=== PATIENT | male | born 1965 | race Caucasian/White ===

== ENCOUNTER → 2021-10-12 | Outpatient (CLI) | payer BC ==
--- NOTE | 2021-10-13 07:38 | XR ---
EXAMINATION TYPE: XR lumbosacral spine 5 views, XR Hip Complete 2 views RT DATE OF EXAM: 10/12/2021 Comparison: None Clinical History: 56-year-old male [id number], [id number] RT HIP PAIN, LBP Findings: Lumbar spine: There is facet arthropathy mid to lower lumbar spine. Vertebral body heights are preserved and alignm ent is maintained. Very mild endplate spondylosis throughout. Disc interspaces are relatively maintai david. Scattered mild atherosclerotic calcifications within the abdominal aorta. No pars interarticular is defect is seen. Right hip: There is end-stage degenerative change with complete loss of superolateral weightbearing joint space and [id number] articulation. Subchondral sclerosis and cystic changes as well as marginal spurring is noted. No acute fracture, subluxation, or dislocation. Impression: 1. Lumbar spine: Facet arthropathy mid to lower lumbar spine. No vertebral compression collapse or ma lalignment. 2. Right hip: Severe right hip OA with [id number], complete loss of the superolateral weightbearing aspect of the joint.
== END | disposition home or self-care (01) ==
LOC: RADXRYALE 16:31
PROVIDERS: ATTEND Nurse Practitioner Family
DX: M47.896 Other spondylosis, lumbar region (principal); M16.11 Unilateral primary osteoarthritis, right hip
CPT/HCPCS: 72110; 73502

== ENCOUNTER → 2022-03-24 | Outpatient (CLI) | payer BC | END | disposition home or self-care (01) | LOC: LABPAT 13:27 | PROVIDERS: ATTEND Orthopaedic Surgery | DX: Z01.812 Encounter for preprocedural laboratory examination (principal); M16.11 Unilateral primary osteoarthritis, right hip | CPT/HCPCS: 93005 ==

== ENCOUNTER → 2022-03-25 | Outpatient (CLI) | payer BC ==
[2022-03-25 10:02] LABS: Prothrombin Time 10.4 sec (9.0-12.0)
[2022-03-25 17:19] LABS: HCT 49.2 % (39.6-50.0); HGB 15.8 g/dL (13.0-17.0); MCH 29.3 pg (27.0-32.0); MCHC 32.1 g/dL (32.0-37.0); MCV 91.3 fL (80.0-97.0); Mean Platelet Volume 10.3 fL (9.5-12.2); NRBC Per 100 WBC 0 /100 WBCS (0.0-0.0); Platelet Count 244 X 10*3/uL (140-440); RBC 5.39 X 10*6/uL (4.40-5.60); RDW 13.6 % (11.5-14.5); WBC 7.64 X 10*3/uL (4.50-10.00)
[2022-03-25 17:22] LABS: Appearance,Urine Clear (Clear); Bilirubin,Urine Negative (Negative); Blood,Urine Negative (Negative); Color,Urine Yellow (Yellow); Ketones,Urine Negative (Negative); Nitrite,Urine Negative (Negative); Specific Gravity,Urine 1.008 (1.001-1.030); Urobilinogen,Urine 0.2 (0.2,1.0)
[2022-03-25 17:55] LABS: African American GFR (CKD) 93.7 (60.0-200.0); Albumin 4.8 g/dL (3.8-4.9); Albumin/Globulin Ratio 1.97 (1.60-3.17); Anion Gap 13.8 mmol/L (10.00-18.00); BUN/Creat Ratio 19.03 Ratio (12.00-20.00); Blood Urea Nitrogen 19.6 mg/dL (9.0-27.0); Calcium 9.7 mg/dL (8.7-10.3); Carbon Dioxide 26.1 mmol/L (20.0-27.5); Globulin 2.4 g/dL (1.6-3.3); Non-African American GFR(CKD) 80.8 (60.0-200.0); Potassium 4.3 mmol/L (3.5-5.5); Total Bilirubin 0.5 mg/dL (0.30-1.20); Total Protein 7.2 g/dL (6.2-8.2)
== END | disposition home or self-care (01) ==
LOC: LABPAT 08:04
PROVIDERS: ATTEND Orthopaedic Surgery
DX: Z01.812 Encounter for preprocedural laboratory examination (principal); E11.9 Type 2 diabetes mellitus without complications; M16.11 Unilateral primary osteoarthritis, right hip
CPT/HCPCS: 80053; 81003; 85027; 85610; 85730; 87070

== ENCOUNTER 2022-04-05 10:49 | Day surgery (SDC) | payer BC ==
[2022-03-31 13:19] VITALS: BMI 37.9
[~2022-04-05 10:49] MED LIST: ACETAMINOPHEN TAB 500 MG TAB PO PRN; DEXAMETHASONE SOD PHOSPHATE 10 MG/ML 1 ML VIAL IV PRN; DOCUSATE 100 MG CAP PO PRN; FAMOTIDINE 20 MG/2 ML VIAL IVP PRN; HYDROmorphone 0.5 MG/0.5 ML SYRINGE IVP PRN; KETOROLAC 15 MG/ML 1 ML VIAL IVP PRN; LIDOCAINE 1% (10MG/ML) FOR IV START INTRADERMA PRN; ONDANSETRON 4 MG/2 ML VIAL IVP PRN; TRANEXAMIC ACID IN NACL,ISO-OS 1,000 MG in SALINE 1 100ML.BAG IVPB PRN; oxyCODONE ER 10 MG TAB.ER.12H PO PRN
[2022-04-05] MEDS: LACTATED RINGERS 1,000 ML IV SCH ×2 (11:09→18:34)
[2022-04-05 11:31] LABS: Glucose,Whole Blood 100 mg/dL (70-110)
[2022-04-05] MEDS ORDERED: MIDAZOLAM 2 MG/2 ML VIAL IVP ONE (11:49)
[2022-04-05] MEDS ORDERED: fentaNYL (PF) 50 MCG/1 ML VIAL IVP ONE (11:49)
--- NOTE | 2022-04-05 12:20 | P.ANPRN ---
Procedure Note - Anesthesia - Nerve Block Performed Right Nicholson Single Time Out Performed: Yes Date of Procedure: 04/05/22 Procedure Start Time: 11:48 Procedure Stop Time: 11:56 Location of Patient: PreOp Indication: Acute Post-Operative Pain, Dx/Pain Location, Requested by Surgeon Specifically requested for management of pain by DrLexii: Adam Mohr Sedation Type: Sedate with meaningful contact maintained Preparation: Sterile Prep Position: Supine Catheter: None Needle Types: Pajunk Needle Gauge: 21 (100 mm) Ultrasound used to visualize needle placement: Yes Ultrasound used to observe medication spread: Yes Injectate: 0.5% Ropivacaine (see comment for volume) (25 cc) Blood Aspirated: No Pain Paresthesia on Injection Noted: No Resistance on Injection: Normal Image Stored and Saved: Yes Events: Uneventful and Well Tolerated
[2022-04-05] MEDS ORDERED: KETAMINE 10 MG/ML 20 ML VIAL ONE (12:58)
[2022-04-05] MEDS ORDERED: GLYCOPYRROLATE 0.2 MG/ML 2 ML VIAL ONE (12:58)
[2022-04-05] MEDS ORDERED: SUCCINYLCHOLINE CHLORIDE 200 MG/10 ML VIAL IV ONE (12:58)
[2022-04-05] MEDS ORDERED: PROPOFOL 10 MG/ML 20 ML VIAL IV ONE (12:58)
[2022-04-05] MEDS ORDERED: ePHEDrine 50 MG/ML 1 ML VIAL ONE (12:58)
[2022-04-05] MEDS ORDERED: NEOSTIGMINE 1 MG/ML 10 ML VIAL ONE (12:58)
[2022-04-05] MEDS ORDERED: ROPIVACAINE 5 MG/ML 30 ML VIAL ONE (12:58)
[2022-04-05] MEDS ORDERED: fentaNYL (PF) 50 MCG/ML 2 ML AMP ONE (12:58)
[2022-04-05] MEDS ORDERED: ROCURONIUM 10 MG/ML (5 ML VIAL) IV ONE (12:58)
[2022-04-05] MEDS ORDERED: TRANEXAMIC ACID IN NACL,ISO-OS 1,000 MG/100 ML BAG ONE (12:58)
[2022-04-05] MEDS ORDERED: LIDOCAINE 2% INJ 20 MG/ML (2 ML VIAL) ONE (12:58)
[2022-04-05] MEDS ORDERED: MIDAZOLAM 2 MG/2 ML VIAL ONE (12:58)
[2022-04-05] MEDS ORDERED: PHENYLEPHRINE-0.9% NACL SYG 1,000 MCG/10 ML SYRINGE ONE (12:58)
[2022-04-05] MEDS ORDERED: LACTATED RINGERS 1,000 ML IV ONE ×2 (13:30→15:47)
[2022-04-05] MEDS: ROPIVACAINE/EPI/CLONIDINE/KET 50 ML SYRINGE MISCELLANE PRN ×2 (13:40→14:16)
[2022-04-05] MEDS ORDERED: VANCOMYCIN 1,000 MG VIAL MISCELLANE ONE (15:24)
--- NOTE | 2022-04-05 15:54 | XR ---
EXAMINATION TYPE: XR Hip Limited RT DATE OF EXAM: 04/05/2022 COMPARISON: NONE HISTORY: Postop TECHNIQUE: 6 views submitted. FINDINGS: There is postsurgical change in near anatomic alignment. There is soft tissue edema and emphysema. IMPRESSION: 1. Postoperative change. Appears in near-anatomic alignment.
--- NOTE | 2022-04-05 15:57 | FL ---
EXAMINATION TYPE: FL guidance operating room DATE OF EXAM: 04/05/2022 HISTORY: Fluoroscopy time 51 seconds of fluoroscopy provided. IMPRESSION: 1. Fluoroscopy time.
[2022-04-05] MEDS ORDERED: hydrOXYzine pamoate 25 MG CAP PO PRN (16:04)
[2022-04-05] MEDS ORDERED: HYDROmorphone 1 MG/ML 1 ML SYRINGE IVP PRN (16:04)
[2022-04-05] MEDS ORDERED: HYDROmorphone 0.5 MG/0.5 ML SYRINGE IVP PRN ×2 (16:04)
[2022-04-05] MEDS ORDERED: HYDROcodone/APAP 5-325MG 1 EACH TAB PO PRN (16:04)
[2022-04-05] MEDS ORDERED: NALOXONE 0.4 MG/ML 1 ML VIAL IV PRN (16:04)
--- NOTE | 2022-04-05 16:04 | P.OP ---
Date of Procedure: 04/05/22 Preoperative Diagnosis: 1. Severe right hip arthritis 2. BMI 37 3. Type II Diabetes Postoperative Diagnosis: Same Procedure(s) Performed: Right direct anterior total hip arthroplasty Implants: 1. [place] Trident II Acetabular Cup, Size #54 2. [place] Insignia Size #6 Femoral Stem, High Offset 3. Biolox delta femoral head, 36 mm, -5 neck Anesthesia: GETA, regional Surgeon: Adam Mohr Oceanographer Physical #1: Eber Lorenzana Estimated Blood Loss (ml): 300 IV fluids (ml): 1,200 Pathology: other (Routine gross and/or histopathologic evaluation not indicated. Findings consistent with osteoarthritis) Condition: stable Disposition: PACU Indications for Procedure: I had a long discussion with the patient in the office on the potential risks and complications of an elective total hip replacement through a direct anterior approach. Risks discussed include, but are certainly not limited to, risks from anesthesia, superficial infection requiring local wound care or antibiotics, deep sandhya-prosthetic joint infection and the treatment required to eradicate infection, intraoperative fracture, postoperative periprosthetic fracture, damage to local blood vessels or nerves particularly the lateral femoral cutaneous nerve, delayed wound healing requiring local wound care or possibly surgical debridement, hip dislocation, leg length discrepancy, soft tissue irritation around the total hip implant such as iliopsoas tendinitis or trochanteric bursitis, wear and osteolysis from the implants, squeaking or audible noises, groin pain, thigh pain, heterotopic ossification, stiffness, aseptic loosening of the implants, dissatisfaction with surgical outcome, need for revision surgery, DVT, PE, swelling of the operative extremity, acute coronary event, stroke, failure to thrive, and possibly loss of life or limb. The patient understands that while these are the most common complications after an elective hip replacement there are certainly other less common complications possible. They were given ample time to ask questions regarding the potential complications of a hip replacement. Following our discussion the patient provided their verbal and written consent to go forward with an elective total hip replacement. Operative Findings: Severe right hip osteoarthritis Description of Procedure: The patient was identified in the preoperative holding area and the correct hip was marked with my initials. I reviewed the procedure and consent with the patient. All of their questions were answered. The patient was then brought back into the operating room by anesthesia. While on the gurney anesthesia was administered by the anesthesia team. Preoperative antibiotics and tranexamic acid were also given. After the patient was under anesthesia I examined their ankles to determine their preoperative leg length discrepancy. The skin over the anterior aspect of the hip was shaved to remove hair over the site of planned incision. Both feet and ankles were padded with webril and boots for the [place] were applied. The patient was then carefully transferred onto the [place] table. A perineal post was immediately placed. The arms were placed on arm holders and were well-padded. Both boots were secured to the spars on the [place] table. The patient was positioned so that the pelvis was centered over the post. Nonsterile drapes were applied. A timeout was performed identifying the correct patient, operative extremity, and procedure. At this point fluoroscopy was brought in to take preoperative images of the pelvis and operative hip. Using the standing AP pelvis from the office as a template, a comparable image was obtained with fluoroscopy. A metallic bar was used to create a bi-ischial line for use as a reference to leg length adjustments during the procedure. Global offset was also measured on both the operative and nonoperative leg. Fluoroscopy was then brought out and a pre-scrub using a chlorhexidine scrub bru sh was performed. The operative limb was then prepped and draped in the standard sterile fashion. An anterior longitudinal incision was made lateral and distal to the ASIS. The skin and subcutaneous tissues were incised sharply. The underlying tensor fascia was identified and incised in its midportion. The fascia was dissected free from the underlying muscle and the muscle belly was retracted. A blunt tipped cobra retractor was placed over the superior neck under the muscle fibers of the gluteus minimus. The deep enveloping fascia of the tensor was incised. The anterior leash of vessels were then identified and cauterized. The fascia between the rectus and the capsule was then incised and the pre-capsular fat was excised. A second Cobra was placed inferior to the neck. The interval between the rectus and iliocapsularis and the hip capsule was developed and a retractor was placed carefully over the anterior rim of the acetabulum. A T-shaped anterior capsulotomy was performed. The superior capsular leaflet was left in place in the inferior capsular flap was excised. The Cobra retractors were placed intracapsularly. We then made a femoral neck osteotomy according to pre operative and intraoperative templating and confirmed the level of the osteotomy using fluoroscopic imaging. The femoral head was removed, passed off to the back table, and sized. The superior capsular flap was excised. Retractors were placed circumferentially exposing the acetabulum. We then circumferentially debrided the acetabulum free of labrum and osteophytes. The pulvinar was removed to fully visualize the cotyloid fossa. We then sequentially reamed to achieve peripheral fit and excellent bleeding subchondral bone. The socket was thoroughly irrigated. The acetabular component was impacted into the appropriate position using fluoroscopy to guide version, inclination, and depth of insertion taking care to have a comparable image of the AP pelvis to the standing image taken in the office. An excellent press-fit was achieved and final position was confirmed using fluoroscopy. The press fit was augmented with bony cancellus dome screws. The liner was then impacted into the socket. Attention was then turned to the femur. The remnant dorsal lateral capsule was excised. The short external rotators were visible and protected. A bone hook was used to confirm appropriate translation of the trochanter away from the acetabulum. The leg was then extended and adducted and the bone hook was used to elevate the femur for broaching. A box osteotome and blunt tipped canal s ound was then utilized to gain access to the femoral canal. We then sequentially broached the femur in appropriate anteversion until excellent torsional stability was achieved. The neck cut was brought flush to the trial broach with a calcar planar. A trial neck and head were then placed onto the broach and the hip was atraumatically reduced under direct visualization. External rotation to 90 was performed to assess stability. Fluoroscopy was brought in. An AP and lateral fluoroscopic image of the proximal femur was obtained to assess position and fill of the trial broach. An AP of the pelvis was then obtained and matched to the preoperative image taken. A bi-ischial bar was then placed and measurements were taken to assess changes in length and offset. The hip was then carefully dislocated, the proximal femur was exposed, and the trial implants were removed. The wound and proximal femur was thoroughly irrigated using sterile saline and pulsatile lavage. The final femoral implant was dispensed and gently tapped into place generating an excellent press-fit. The trunnion was cleansed and the final head was tapped into place to engage the Boyle taper. The acetabulum was irrigated and visualized to be free of debris. The hip was carefully reduced. Stability was checked clinically with external rotation to 90 and there was no evidence of instability. Final fluoroscopic images were taken. The wound was then thoroughly irrigated and soaked with a dilute Betadine rinse for 3 minutes. 3 L of sterile saline was irrigated through the wound using pulsatile lavage. Local anesthetic cocktail was injected into the soft tissues around the surgical field. A deep drain was placed. The wound was then closed in layers. A sterile dressing was placed over the surgical incision and drain site. The drapes were taken down and the patient was carefully transferred off of the [place] table. Following removal of the boots the leg lengths felt acceptable. The patient was then taken to recovery room having tolerated the procedure well. Eber Lorenzana PA-C was required as a skilled rn first assistant for patient positioning, surgical exposure, retraction, placement of implants, and closure of the surgical wound. PLAN: The patient can weight-bear as tolerated on the operative extremity. 2 doses of postoperative antibiotics. DVT prophylaxis with aspirin 81 mg twice a day based on preoperative risk stratification. Physical therapy for gait training. Discontinue drain postoperative day #1 if output is less than 100 mL per shift.
[2022-04-05 17:08] LABS: Glucose,Whole Blood 134 mg/dL (70-110)
[2022-04-05] MEDS ORDERED: metFORMIN 500 MG TAB PO SCH (18:30)
[2022-04-05] MEDS: ASPIRIN 81 MG PO SCH (20:53)
[2022-04-05] MEDS ORDERED: LOSARTAN-HCTZ 50-12.5 MG 1 EACH TAB PO SCH (21:00)
[2022-04-05] MEDS ORDERED: SENNOSIDES-DOCUSATE SODIUM 1 EACH TAB PO SCH (21:00)
[2022-04-05 21:16] LABS: Glucose,Whole Blood 229 mg/dL (70-110)
[2022-04-06] MEDS: HYDROcodone/APAP 5-325MG 1 EACH TAB PO PRN ×2 (03:25→08:43)
[2022-04-06 06:15] LABS: Glucose,Whole Blood 144 mg/dL (70-110)
[2022-04-06 07:49] VITALS: BP 125/62; PULSE 76; RESP 16; TEMP 98.8
[2022-04-06] MEDS: LACTATED RINGERS 1,000 ML IV SCH ×2 (07:49)
--- NOTE | 2022-04-06 08:32 | P.DS ---
Providers Expected date of discharge: 04/06/22 Attending physician: Adam Mohr Consults: 04/05/22 16:04 Consult Physician Routine Consulting Provider: Nisreen Bray Consult Reason/Comments: medical management Do you want consulting provider notified?: Yes Primary care physician: [facility] Course: This is a 56-year-old male who has been followed in our office by Dr. Mohr for continued complaints of right hip pain due to right hip osteoarthritis. Treatment options were discussed, and patient elected to undergo a right total hip arthroplasty. Patient was seen pre-operatively by Melanie Graham NP, Dr. Broderick and cleared for surgery. Patient underwent a right total hip arthroplasty on 04/05/22. The procedure was performed without complication or sequelae. The patient is doing fairly well postoperatively. Vital signs and labs are stable on postoperative day #1. Patient was examined bedside today with Dr. Mohr. Patient states he is overall doing very well and the pain in his right hip is well-controlled. His hemovac drain was pulled this morning. He has been ambulating with a walker with minimal assistance. Patient is comfortable being discharged home today. Patient denies new complaints this morning. On examination, the patient is sitting up in the bed in no apparent distress. He is alert and orientated 3. On inspection of the right hip, there is a clean, dry, intact surgical dressing in place. There is no bleeding or drainage the dressing. Patient has good strength and ROM of the right ankle and toes. Motor and sensory function is intact of the right lower extremity. Femoral nerve function intact. The dorsalis pedis pulse is easily palpable, the right lower extremity is warm and well perfused with brisk capillary refill. Calf is soft and non-tender to palpation. Patient is discharged home with home health in good condition, pending medical clearance. Patient will follow-up with Dr. Mohr in the office in 2 weeks. Please see med rec for accurate list of discharge medication. Plan - Discharge Summary Discharge Rx Participant: Yes New Discharge Prescriptions: New Aspirin 81 mg PO BID 30 Days #60 tab Docusate [Colace] 100 mg PO BID #60 capsule Doxycycline Monohydrate 100 mg PO BID 14 Days #28 cap HYDROcodone/APAP 5-325MG [[place] 5-325] 1 - 2 tab PO Q6HR PRN 7 Days #32 tab PRN Reason: Pain Omeprazole 40 mg PO DAILY 30 Days #30 cap Diclofenac Sodium [Voltaren] 75 mg PO BID 30 Days #60 tab No Action allopurinoL [Zyloprim] 300 mg PO HS Fluticasone/Vilanterol [Breo Ellipta 100-25 Mcg Inhaler] 1 inhalation PO QAM Multivit-Min/Folic/Vit K/Lycop [Men's Multivitamin Tablet] 1 each PO DAILY metFORMIN HCL [Glucophage] 500 mg PO PC-SUPPER Losartan-Hctz 50-12.5 mg [Hyzaar 50-12.5] 1 tab PO HS Diclofenac Sodium [Voltaren] 75 mg PO BID Simvastatin [Zocor] 80 mg PO HS Acetaminophen [Tylenol Extra Strength] 500 mg PO DIRECTED Discharge Medication List Acetaminophen [Tylenol Extra Strength] 500 mg PO DIRECTED 03/31/22 [History] Diclofenac Sodium [Voltaren] 75 mg PO BID 03/31/22 [History] Fluticasone/Vilanterol [Breo Ellipta 100-25 Mcg Inhaler] 1 inhalation PO QAM 03/31/22 [History] Losartan-Hctz 50-12.5 mg [Hyzaar 50-12.5] 1 tab PO HS 03/31/22 [History] Multivit-Min/Folic/Vit K/Lycop [Men's Multivitamin Tablet] 1 each PO DAILY 03/31/22 [History] Simvastatin [Zocor] 80 mg PO HS 03/31/22 [History] allopurinoL [Zyloprim] 300 mg PO HS 03/31/22 [History] metFORMIN HCL [Glucophage] 500 mg PO PC-SUPPER 03/31/22 [History] Aspirin 81 mg PO BID 30 Days #60 tab 04/05/22 [Rx] Diclofenac Sodium [Voltaren] 75 mg PO BID 30 Days #60 tab 04/05/22 [Rx] Docusate [Colace] 100 mg PO BID #60 capsule 04/05/22 [Rx] Doxycycline Monohydrate 100 mg PO BID 14 Days #28 cap 04/05/22 [Rx] HYDROcodone/APAP 5-325MG [[place] 5-325] 1 - 2 tab PO Q6HR PRN 7 Days #32 tab 04/05/22 [Rx] Omeprazole 40 mg PO DAILY 30 Days #30 cap 04/05/22 [Rx] Follow up Appointment(s)/Referral(s): Adam Mohr MD [Medical Doctor] - 2 Weeks Activity/Diet/Wound Care/Special Instructions: Weight bear to tolerance on operative extremity with a walker. Keep operative dressing intact until follow-up appointment in the office. Call the office if dressing becomes saturated or falls off. May shower over dressing. Take pain medications as prescribed. Take aspirin 81 mg BID x 4 weeks for blood clot prevention. Follow-up in the office at [facility] in two weeks. Call the office with any questions or concerns, Discharge Disposition: HOME WITH HOME HEALTH SERVICES
[2022-04-06] MEDS: ASPIRIN 81 MG PO SCH (08:40)
[2022-04-06 10:41] LABS: Basophils # (A) 0.04 X 10*3/uL (0.00-0.10); Basophils % (A) 0.2 %; Eosinophils # (A) 0.01 X 10*3/uL (0.04-0.35); Eosinophils % (A) 0.1 %; HCT 38.6 % (39.6-50.0); HGB 12.7 g/dL (13.0-17.0); Immature Grans, Automated 0.5 %; MCH 30.5 pg (27.0-32.0); MCHC 32.9 g/dL (32.0-37.0); MCV 92.6 fL (80.0-97.0); Monocytes # (A) 1.27 X 10*3/uL (0.20-1.00); NRBC Per 100 WBC 0 /100 WBCS (0.0-0.0); Neutrophils # (A) 14.83 X 10*3/uL (1.80-7.70); Neutrophils % (A) 81.2 %; Platelet Count 248 X 10*3/uL (140-440); RBC 4.17 X 10*6/uL (4.40-5.60); RDW 13.5 % (11.5-14.5); WBC 18.24 X 10*3/uL (4.50-10.00)
[2022-04-06] MEDS ORDERED: SYMBICORT 80-4.5 MCG INHALER INHALATION SCH (11:00)
[2022-04-06] MEDS ORDERED: MULTIVITAMINS, THERA 1 EACH TAB PO SCH (11:00)
[2022-04-06 11:08] LABS: Glucose,Whole Blood 108 mg/dL (70-110)
--- NOTE | 2022-04-06 18:40 | P.CONS ---
History of Present Illness - Reason for Consult Consult date: 04/06/22 Medical management Requesting physician: Adam Mohr - Chief Complaint Right hip surgery - History of Present Illness This is a pleasant 56-year-old patient who follows with Dr. Pittman. Chronic stable medical conditions include asthma, diabetes, hypertension, osteoa rthritis, gout, he'll sleep does not use a machine, fatty liver. Patient is undergoing right total hip arthroplasty. Some pain .No nausea vomiting. He had his breakfast. Review of systems: GEN.: None EYES: None HEENT: None NECK: None RESPIRATORY: None CARDIOVASCULAR: None GASTROINTESTINAL: None GENITOURINARY: None MUSCULOSKELETAL: Joint pain LYMPHATICS: None HEMATOLOGICAL: None PSYCHIATRY: None NEUROLOGICAL: None Past medical history to include: Asthma, diabetes, hypertension, osteomyelitis, sleep apnea doesn't use machine, fatty liver, gout Social history: Nonsmoker. Alcohol occasionally. 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 Physical examination: VITAL SIGNS: 98.8, 76, 18, 125/62, 92% room air GENERAL: BMI 37.6, sitting up in chair, awake, comfortable. EYES: Pupils equal. Conjunctiva normal. HEENT: External appearance of nose and ears normal, oral cavity grossly normal. NECK: JVD not raised; masses not palpable. HEART: First and second heart sounds are normal; no edema. LUNGS: Respiratory rate normal; clear to auscultation. ABDOMEN: Soft, nontender, liver spleen not palpable, no masses palpable. PSYCH: Alert and oriented x3; mood and affect normal. MUSCULOSKELETAL:No Clubbing/cyanosis;muscles-grossly intact. OA NEUROLOGICAL: Cranial nerves grossly intact; no facial asymmetry, power and sensation grossly intact. LYMPHATICS: No lymph nodes palpable in the axilla and neck INVESTIGATIONS, reviewed in the clinical context: White count 18.2 hemoglobin 12.7 platelets 248 Previous labs: From 03/15/2022: Hemoglobin 15.8 potassium 4.3 creatinine 1.0 Assessment and plan: -Right total hip arthroplasty. [place] for pain control. Aspirin DVT prophylaxis. -Primary osteomyelitis multiple joints bilaterally Pain medications as needed -Diabetes mellitus type 2 Glucophage. Follow Accu-Cheks and sliding-scale -Chronic gout/hyperuricemia Allopurinol -Hyperlipidemia Zocor 80 mg daily at bedtime -Essential hypertension Hyzaar 50/12.5 one tablet daily at bedtime -Moderate persistent asthma Breo-ellipta 1 puff daily -GERD Omeprazole -Acute postprocedure blood loss anemia expected from surgery Ferrous sulfate by mouth Home medications reviewed. Increase activity as tolerated. Follow-up with PCP upon discharge. Thank you Dr. Mohr Past Medical History Past Medical History: Asthma, Diabetes Mellitus, Hypertension, Osteoarthritis (OA), Sleep Apnea/CPAP/BIPAP Additional Past Medical History / Comment(s): gout, sleep apnea-unable to use machine-sleeps in recliner., fatty liver., pain right hip. History of Any Multi-Drug Resistant Organisms: None Reported Past Surgical History: Hernia Repair Additional Past Surgical History / Comment(s): peggy inguinal hernia at 3yrs old, 2 additional inguinal hernia surgeries as adult. Past Anesthesia/Blood Transfusion Reactions: No Reported Reaction Past Psychological History: No Psychological Hx Reported Smoking Status: Never smoker Past Alcohol Use History: Occasional Past Drug Use History: None Reported - Past Family History Mother Family Medical History: No Reported History Medications and Allergies Home Medications Medication Instructions Recorded Confirmed Type Acetaminophen [Tylenol Extra 500 mg PO DIRECTED 03/31/22 04/05/22 History Strength] Diclofenac Sodium [Voltaren] 75 mg PO BID 03/31/22 04/05/22 History Fluticasone/Vilanterol [Breo 1 inhalation PO QAM 03/31/22 04/05/22 History Ellipta 100-25 Mcg Inhaler] Losartan-Hctz 50-12.5 mg [Hyzaar 1 tab PO HS 03/31/22 04/05/22 History 50-12.5] Multivit-Min/Folic/Vit K/Lycop 1 each PO DAILY 03/31/22 04/05/22 History [Men's Multivitamin Tablet] Simvastatin [Zocor] 80 mg PO HS 03/31/22 04/05/22 History allopurinoL [Zyloprim] 300 mg PO HS 03/31/22 04/05/22 History metFORMIN HCL [Glucophage] 500 mg PO PC-SUPPER 03/31/22 04/05/22 History Aspirin 81 mg PO BID 30 Days #60 tab 04/05/22 Rx Diclofenac Sodium [Voltaren] 75 mg PO BID 30 Days #60 tab 04/05/22 Rx Docusate [Colace] 100 mg PO BID #60 capsule 01/11/23 Rx Doxycycline Monohydrate 100 mg PO BID 14 Days #28 cap 04/05/22 Rx HYDROcodone/APAP 5-325MG [[place] 1 - 2 tab PO Q6HR PRN 7 Days #32 04/05/22 Rx 5-325] tab Omeprazole 40 mg PO DAILY 30 Days #30 cap 04/05/22 Rx Allergies Allergy/AdvReac Type Severity Reaction Status Date / Time No Known Allergies Allergy Verified 04/05/22 11:34 Physical Exam Vitals: Vital Signs Temp Pulse Resp BP Pulse Ox 04/06/22 08:03 92 L 04/06/22 07:03 98.8 F 76 16 125/62 92 L 04/06/22 01:49 98.4 F 80 18 114/60 90 L 04/05/22 19:18 98.2 F 84 18 124/59 92 L 04/05/22 16:49 76 16 113/55 95 04/05/22 16:34 74 16 117/61 97 04/05/22 16:19 72 16 119/57 97 04/05/22 16:04 78 16 119/70 96 04/05/22 12:05 80 16 131/65 96 04/05/22 11:17 98 F 84 16 149/73 99 Intake and Output 04/05/22 04/06/22 04/06/22 22:59 06:59 14:59 Intake Total 350 Output Total 300 700 Balance 50 -700 Intake: IV 50 Intake, IV Titration 300 Amount Lactated Ringers 1,000 ml 300 @ 100 mls/hr IV .Q10H [facility] Rx#:[id number] Output: Drainage 200 Right Hip 200 Urine 500 Estimated Blood Loss 300 Other: Voiding Method Toilet # Voids 3 Weight 110.5 kg Results CBC & Chem 7: 04/06/22 07:37 Labs: Abnormal Lab Results - Last 24 Hours (Table) 04/05/22 04/05/22 04/06/22 Range/Units 17:06 21:15 06:14 POC Glucose (mg/dL) 134 H 229 H 144 H (70-110) mg/dL
[2022-04-06] MEDS ORDERED: ATORVASTATIN 40 MG TAB PO SCH (21:00)
[2022-04-06] MEDS ORDERED: allopurinoL 300 MG TAB PO SCH (21:00)
== END 2022-04-06 13:20 | disposition home health service (06) ==
LOC: OR 10:49 → 4SSUR 16:04 → OR 04-06 13:20
PROVIDERS: ATTEND Orthopaedic Surgery
DX: M16.11 Unilateral primary osteoarthritis, right hip (principal); G89.18 Other acute postprocedural pain; J45.909 Unspecified asthma, uncomplicated; E11.9 Type 2 diabetes mellitus without complications; I10 Essential (primary) hypertension; G47.30 Sleep apnea, unspecified; M10.9 Gout, unspecified; D62 Acute posthemorrhagic anemia; K76.0 Fatty (change of) liver, not elsewhere classified; F10.90 Alcohol use, unspecified, uncomplicated; K21.9 Gastro-esophageal reflux disease without esophagitis; Z79.84 Long term (current) use of oral hypoglycemic drugs; Z79.899 Other long term (current) drug therapy; Z79.1 Long term (current) use of non-steroidal anti-inflammatories (NSAID); Z98.890 Other specified postprocedural states; Z79.82 Long term (current) use of aspirin
CPT/HCPCS: 27130; 64447; 86900; 86901; 86850; 73501; J2250; J3370; J1100; J0690; J2405; J1885; J3010; 85025; 94760

== ENCOUNTER → 2023-02-08 | Outpatient (CLI) | payer BC ==
[2023-02-08 13:12] LABS: Partial Thromboplastin Time 24.4 sec (22.0-30.0); Prothrombin Time 10.7 sec (10.0-12.5)
[2023-02-08 16:18] LABS: Appearance,Urine Clear (Clear); Bilirubin,Urine Negative (Negative); Blood,Urine Negative (Negative); Color,Urine Yellow (Yellow); Ketones,Urine Negative (Negative); Nitrite,Urine Negative (Negative); Specific Gravity,Urine 1.009 (1.001-1.030); Urobilinogen,Urine 0.2 E.U./DL
[2023-02-08 16:30] LABS: ALT 28 U/L (10-49); AST 23 U/L (14-35); Albumin 4.8 g/dL (3.8-4.9); Albumin/Globulin Ratio 1.78 Ratio (1.60-3.17); Alkaline Phosphatase 51 U/L (41-126); Blood Urea Nitrogen 20.2 mg/dL (9.0-27.0); Calcium 9.7 mg/dL (8.7-10.3); Carbon Dioxide 26.2 mmol/L (21.6-31.8); Chloride 98 mmol/L (96-109); Globulin 2.7 g/dL (1.6-3.3); Glucose 96 mg/dL (70-110); Sodium 140 mmol/L (135-145); Total Bilirubin 0.6 mg/dL (0.3-1.2); Total Protein 7.5 g/dL (6.2-8.2)
[2023-02-08 16:36] LABS: HCT 47.3 % (39.6-50.0); HGB 15.6 g/dL (13.0-17.0); MCH 29.5 pg (27.0-32.0); MCV 89.6 FL (80.0-97.0); Mean Platelet Volume 10.6 FL (9.5-12.2); NRBC Per 100 WBC 0 X 10*3/uL (0.00-0.01); Platelet Count 267 X 10*3/uL (140-440); RBC 5.28 X 10*6/uL (4.40-5.60); RDW 13.5 % (11.5-14.5); WBC 9.01 X 10*3/uL (4.50-10.00)
== END | disposition home or self-care (01) ==
LOC: LABWHC1 11:43
PROVIDERS: ATTEND Orthopaedic Surgery
DX: Z01.818 Encounter for other preprocedural examination (principal); M16.12 Unilateral primary osteoarthritis, left hip
CPT/HCPCS: 36415; 80053; 81003; 85027; 85610; 85730; 86850; 86900; 86901; 87070; 93005

== ENCOUNTER 2023-02-14 11:18 | Day surgery (SDC) | payer BC ==
[~2023-02-14 11:18] MED LIST changes: -HYDROmorphone 0.5 MG/0.5 ML SYRINGE IVP PRN; -LIDOCAINE 1% (10MG/ML) FOR IV START INTRADERMA PRN; +ROPIVACAINE/EPI/CLONIDINE/KET 50 ML SYRINGE MISCELLANE PRN; +TRANEXAMIC 1,000 MG/100ML-NACL 1,000 MG in SALINE 1 100ML.BAG IV PRN; +TRANEXAMIC 1,000 MG/100ML-NACL 1,000 MG in SALINE 1 100ML.BAG IVPB PRN; -TRANEXAMIC ACID IN NACL,ISO-OS 1,000 MG in SALINE 1 100ML.BAG IVPB PRN
[2023-02-14 11:57] LABS: Glucose,Whole Blood 115 mg/dL (70-110)
[2023-02-14] MEDS ORDERED: ONDANSETRON 4 MG/2 ML VIAL IVP ONE (12:05)
[2023-02-14] MEDS ORDERED: HYDROmorphone 0.5 MG/0.5 ML SYRINGE IVP PRN (12:05)
[2023-02-14] MEDS ORDERED: LACTATED RINGERS 1,000 ML IV SCH (12:05)
[2023-02-14] MEDS ORDERED: MIDAZOLAM 2 MG/2 ML VIAL IV PRN (12:05)
[2023-02-14] MEDS ORDERED: DEXAMETHASONE SOD PHOSPHATE 4 MG/ML 1 ML VIAL IV ONE (12:05)
[2023-02-14] MEDS ORDERED: LIDOCAINE 1% (10MG/ML) FOR IV START INTRADERMA PRN (12:05)
[2023-02-14] MEDS ORDERED: MIDAZOLAM 2 MG/2 ML VIAL IVP ONE (12:51)
[2023-02-14] MEDS ORDERED: PROPOFOL 10 MG/ML 20 ML VIAL IV ONE (13:29)
[2023-02-14] MEDS ORDERED: MIDAZOLAM 2 MG/2 ML VIAL ONE (13:29)
[2023-02-14] MEDS ORDERED: TRANEXAMIC 1,000 MG/100ML-NACL PREMIX BAG ONE (13:29)
[2023-02-14] MEDS ORDERED: GLYCOPYRROLATE 0.2 MG/ML 2 ML VIAL ONE (13:29)
[2023-02-14] MEDS ORDERED: PHENYLEPHRINE-0.9% NACL SYG 1,000 MCG/10 ML SYRINGE ONE (13:29)
[2023-02-14] MEDS ORDERED: ROPIVACAINE 5 MG/ML 30 ML VIAL ONE (13:29)
[2023-02-14] MEDS ORDERED: NEOSTIGMINE 1 MG/ML 10 ML VIAL ONE (13:29)
[2023-02-14] MEDS ORDERED: fentaNYL (PF) 50 MCG/ML 2 ML AMP ONE (13:29)
[2023-02-14] MEDS ORDERED: LIDOCAINE 1% INJ 10MG/ML (20 ML MDV) ONE (13:29)
[2023-02-14] MEDS ORDERED: ROCURONIUM 10 MG/ML (5 ML VIAL) IV ONE (13:29)
[2023-02-14] MEDS ORDERED: SUCCINYLCHOLINE CHLORIDE 200 MG/10 ML VIAL IV ONE (13:29)
--- NOTE | 2023-02-14 15:19 | P.ANPRN ---
Procedure Note - Anesthesia - Nerve Block Performed Left Bharat Single Time Out Performed: Yes Date of Procedure: 02/14/23 Procedure Start Time: 12:55 Procedure Stop Time: 13:01 Location of Patient: PreOp Indication: Acute Post-Operative Pain, Requested by Surgeon Sedation Type: Sedate with meaningful contact maintained Preparation: Sterile Prep Position: Supine Catheter: None Needle Types: Pajunk Needle Gauge: 21 Ultrasound used to visualize needle placement: Yes Ultrasound used to observe medication spread: Yes Injectate: 0.5% Ropivacaine (see comment for volume) (20cc) Blood Aspirated: No Pain Paresthesia on Injection Noted: No Resistance on Injection: Normal Image Stored and Saved: Yes Events: Uneventful and Well Tolerated
[2023-02-14] MEDS ORDERED: LACTATED RINGERS 1,000 ML IV ONE (15:21)
--- NOTE | 2023-02-14 15:58 | XR ---
EXAMINATION TYPE: XR Hip Complete LT DATE OF EXAM: 02/14/2023 COMPARISON: NONE HISTORY: 57-year-old male anterior left hip replacement TECHNIQUE: Intraoperative fluoroscopy FINDINGS: LT HIP REPLACEMENT WITH DR. MILLER FL TIME 38 SEC DAP 4.8327 mGycm2 6 images provided IMPRESSION: Intraoperative fluoroscopy during left hip total arthroplasty.
--- NOTE | 2023-02-14 15:58 | FL ---
Intraoperative/procedural fluoroscopic services were provided. Total fluoroscopy time is 38 seconds w ith a total of 6 submitted images to PACS. Please see the operative/procedural note for further detai ls. DAP: 4.8327 Gycm2
--- NOTE | 2023-02-14 16:22 | P.OP ---
Date of Procedure: 02/14/23 Preoperative Diagnosis: 1. Severe left hip osteoarthritis Postoperative Diagnosis: Same Procedure(s) Performed: Left direct anterior total hip arthroplasty Implants: 1. Dillon Trident II Acetabular Cup, Size #54 2. Walsh Insignia Size #5 Femoral Stem, Standard Offset 3. Biolox delta femoral head, 36 mm, - 5 mm neck Anesthesia: GETA, regional Surgeon: Adam Mohr Estimated Blood Loss (ml): 300 IV fluids (ml): 1,000 Pathology: none sent Condition: stable Disposition: PACU Indications for Procedure: I had a long discussion with the patient in the office on the potential risks and complications of an elective total hip replacement through a direct anterior approach. Risks discussed include, but are certainly not limited to, risks from anesthesia, superficial infection requiring local wound care or antibiotics, deep sandhya-prosthetic joint infection and the treatment required to eradicate infection, intraoperative fracture, postoperative periprosthetic fracture, damage to local blood vessels or nerves particularly the lateral femoral cutaneous nerve, delayed wound healing requiring local wound care or possibly surgical debridement, hip dislocation, leg length discrepancy, soft tissue irritation around the total hip implant such as iliopsoas tendinitis or trochanteric bursitis, wear and osteolysis from the implants, squeaking or audible noises, groin pain, thigh pain, heterotopic ossification, stiffness, aseptic loosening of the implants, dissatisfaction with surgical outcome, need for revision surgery, DVT, PE, swelling of the operative extremity, acute coronary event, stroke, failure to thrive, and possibly loss of life or limb. The patient understands that while these are the most common complications after an elective hip replacement there are certainly other less common complications possible. They were given ample time to ask questions regarding the potential complications of a hip replacement. Following our discussion the patient provided their verbal and written consent to go forward with an elective total hip replacement. Operative Findings: Severe arthritis left hip Description of Procedure: The patient was identified in the preoperative holding area and the correct hip was marked with my initials. I reviewed the procedure and consent with the patient. All of their questions were answered. The patient was then brought back into the operating room by anesthesia. While on the [facility] anesthesia was administered by the anesthesia team. Preoperative antibiotics and tranexamic acid were also given. After the patient was under anesthesia I examined their ankles to determine their preoperative leg length discrepancy. The skin over the anterior aspect of the hip was shaved to remove hair over the site of plann ed incision. Both feet and ankles were padded with webril and boots for the Austin were applied. The patient was then carefully transferred onto the Austin table. A perineal post was immediately placed. The arms were placed on arm holders and were well-padded. Both boots were secured to the spars on the Austin table. The patient was positioned so that the pelvis was centered over the post. Nonsterile drapes were applied. A timeout was performed identifying the correct patient, operative extremity, and procedure. At this point fluoroscopy was brought in to take preoperative images of the pelvis and operative hip. Using the standing AP pelvis from the office as a template, a comparable image was obtained with fluoroscopy. A metallic bar was used to create a bi-ischial line for use as a reference to leg length adjustments during the procedure. Global offset was also measured on both the operative and nonoperative leg. Fluoroscopy was then brought out and a pre-scrub using a chlorhexidine scrub brush was performed. The operative limb was then prepped and draped in the standard sterile fashion. An anterior longitudinal incision was made lateral and distal to the ASIS. The skin and subcutaneous tissues were incised sharply. The underlying tensor fascia was identified and incised in its midportion. The fascia was dissected free from the underlying muscle and the muscle belly was retracted. A blunt tipped cobra retractor was placed over the superior neck under the muscle fibers of the gluteus minimus. The deep enveloping fascia of the tensor was incised. The anterior leash of vessels were then identified and cauterized. The fascia between the rectus and the capsule was then incised and the pre-capsular fat was excised. A second Cobra was placed inferior to the neck. The interval between the rectus and iliocapsularis and the hip capsule was developed and a retractor was placed carefully over the anterior rim of the acetabulum. A T-shaped anterior capsulotomy was performed. The superior capsular leaflet was left in place in the inferior capsular flap was excised. The Cobra retractors were placed intracapsularly. We then made a femoral neck osteotomy according to preoperative and intraoperative templating and confirmed the level of the osteotomy using fluoroscopic imaging. The femoral head was removed, passed off to the back table, and sized. The superior capsular flap was excised. Retractors were placed circumferentially exposing the acetabulum. We then circumferentially debrided the acetabulum free of labrum and osteophytes. The pulvinar was removed to fully visualize the cotyloid fossa. We then sequentially reamed to achieve peripheral fit and excellent bleeding subchondral bone. The socket was thoroughly irrigated. The acetabular component was impacted into the appropriate position using fluoroscopy to guide version, inclination, and depth of insertion taking care to have a comparable image of the AP pelvis to the standing image taken in the office. An excellent press-fit was achieved and final position was confirmed using fluoroscopy. The press fit was augmented with bony cancellus dome screws. The liner was then impacted into the socket. Attention was then turned to the femur. The remnant dorsal lateral capsule was excised. The short external rotators were visible and protected. A bone hook was used to confirm appropriate translation of the trochanter away from the acetabulum. The leg was then extended and adducted and the bone hook was used to elevate the femur for broaching. A box osteotome and blunt tipped canal sound was then utilized to gain access to the femoral canal. We then sequentially broached the femur in appropriate anteversion until excellent torsional stability was achieved. The neck cut was brought flush to the trial broach with a calcar planar. A trial neck and head were then placed onto the broach and the hip was atraumatically reduced under direct visualization. External rotation to 90 was performed to assess stability. Fluoroscopy was brought in. An AP and lateral fluoroscopic image of the proximal femur was obtained to assess position and fill of the trial broach. An AP of the pelvis was then obtained and matched to the preoperative image taken. A bi-ischial bar was then placed and measurements were taken to assess changes in length and offset. The hip was then carefully dislocated, the proximal femur was exposed, and the trial implants were removed. The wound and proximal femur was thoroughly irrigated using sterile saline and pulsatile lavage. The final femoral implant was dispensed and gently tapped into place generating an excellent press-fit. The trunnion was cleansed and the final head was tapped into place to engage the Boyle taper. The acetabulum was irrigated and visualized to be free of debris. The hip was carefully reduced. Stability was checked clinically with external rotation to 90 and there was no evidence of instability. Final fluoroscopic images were taken. The wound was then thoroughly irrigated and soaked with a dilute Betadine rinse for 3 minutes. 3 L of sterile saline was irrigated through the wound using pulsatile lavage. Local anesthetic cocktail was injected into the soft tissues around the surgical field. A deep drain was placed. The wound was then closed in layers. A sterile dressing was placed over the surgical incision and drain site. The drapes were taken down and the patient was carefully transferred off of the Austin table. Following removal of the boots the leg lengths felt acceptable. The patient was then taken to recovery room having tolerated the procedure well. . PLAN: The patient can weight-bear as tolerated on the operative extremity. 2 doses of postoperative antibiotics. DVT prophylaxis with aspirin 81 mg twice a day based on preoperative risk stratification. Physical therapy for gait training. Discontinue drain postoperative day #1 if output is less than 100 mL per shift.
[2023-02-14] MEDS ORDERED: diazePAM 5 MG TAB PO PRN (16:26)
[2023-02-14] MEDS ORDERED: hydrOXYzine pamoate 25 MG CAP PO PRN (16:26)
[2023-02-14] MEDS ORDERED: HYDROmorphone 1 MG/ML 1 ML SYRINGE IVP PRN (16:26)
[2023-02-14] MEDS ORDERED: HYDROcodone/APAP 5-325MG 1 EACH TAB PO PRN (16:26)
[2023-02-14] MEDS ORDERED: MAGNESIUM HYDROXIDE 2,400 MG/30 ML CUP PO PRN (16:26)
[2023-02-14] MEDS ORDERED: NALOXONE 0.4 MG/ML 1 ML VIAL IV PRN (16:26)
[2023-02-14] MEDS ORDERED: ONDANSETRON 4 MG/2 ML VIAL IVP PRN (16:33)
[2023-02-14] MEDS: LACTATED RINGERS 1,000 ML IV SCH (17:06)
[2023-02-14] MEDS: HYDROcodone/APAP 10-325MG 1 EACH TAB PO PRN (17:47)
[2023-02-14] MEDS: ASPIRIN 81 MG PO SCH (20:01)
[2023-02-14 20:28] LABS: Glucose,Whole Blood 206 mg/dL (70-110)
[2023-02-14] MEDS ORDERED: SENNOSIDES-DOCUSATE SODIUM 1 EACH TAB PO SCH (21:00)
[2023-02-15] MEDS: HYDROcodone/APAP 10-325MG 1 EACH TAB PO PRN ×2 (02:11→08:30)
[2023-02-15] MEDS: LACTATED RINGERS 1,000 ML IV SCH (03:03)
[2023-02-15 06:04] LABS: Glucose,Whole Blood 147 mg/dL (70-110)
--- NOTE | 2023-02-15 07:43 | P.PN ---
Subjective Progress Note Date: 02/15/23 Patient is doing well. He has some pain in his left hip is otherwise without complaints. Objective - Vital Signs Vital signs: Vital Signs Temp 98.2 F 02/15/23 02:02 Pulse 73 02/15/23 02:02 Resp 17 02/15/23 02:02 BP 128/71 02/15/23 02:02 Pulse Ox 91 L 02/15/23 02:02 FiO2 Intake & Output 02/14/23 02/15/23 02/15/23 18:59 06:59 18:59 Intake Total 2000 Output Total 300 Balance 1700 Weight 108.862 kg Intake: IV 1700 Oral 300 Output: Estimated Blood Loss 300 Other: # Voids 2 - Exam Patient is sitting up comfortably in bed. He is alert and able to answer questions. A focused exam of the left lower extremity was conducted. On inspection has a clean dressing over the anterior aspect of the left hip. His Hemovac drain is in place. The Hemovac drain was removed without difficulty and the sponge and dressing over the drain site were reinforced. His thigh is soft. Femoral nerve function is intact. He is able to actively plantarflex and dorsiflex his ankle and toes. - Labs Labs: Abnormal Lab Results - Last 24 Hours (Table) 02/14/23 02/14/23 02/15/23 Range/Units 11:55 20:19 06:02 POC Glucose (mg/dL) 115 H 206 H 147 H (70-110) mg/dL Assessment and Plan Assessment: Postoperative day #1 status post left direct anterior total hip arthroplasty Plan: 1. Weightbearing as tolerated left lower extremity, up with assistance and a walker 2. DVT prophylaxis with aspirin 81 mg twice a day 3. 2 doses postoperative antibiotics 4. Hemovac drain removed this morning, leave dressing in place 5. Internal medicine for perioperative medical management 6. Physical therapy for gait training 7. Dispo: The patient would like to discharge home later this morning. He is okay to discharge from an orthopedic standpoint when his pain is controlled and she passes physical therapy.
--- NOTE | 2023-02-15 07:45 | P.DS ---
Providers Date of admission: 02/14/2023 Attending physician: Adam Mohr Consults: 02/14/23 16:26 Consult Physician Routine Consulting Provider: Nisreen Bray Consult Reason/Comments: post op medical management Do you want consulting provider notified?: Yes Primary care physician: [facility] Course: The patient is a very pleasant 57-year-old male who previously underwent a right total hip placement and did well. He was admitted yesterday and underwent a left total hip replacement. Following an uncomplicated surgery he was transferred to the orthopedic floor in stable condition. He received 2 doses of postoperative antibiotics. He was transitioned from IV to oral pain medications. Internal medicine was consulted for perioperative medical management. On postoperative day #1 he was doing well. His drain was removed. He was ultimately cleared for discharge home after working with therapy. Patient Condition at Discharge: Good Plan - Discharge Summary Discharge Rx Participant: No New Discharge Prescriptions: New HYDROcodone/APAP 5-325MG [[place] 5-325] 1 - 2 tab PO Q6HR PRN #32 tab PRN Reason: Pain Aspirin 81 mg PO BID 30 Days #60 tab Docusate [Colace] 100 mg PO BID #30 capsule Diclofenac Sodium [Voltaren] 75 mg PO BID #60 tab Omeprazole 40 mg PO DAILY #30 cap No Action allopurinoL [Zyloprim] 300 mg PO HS Fluticasone/Vilanterol [Breo Ellipta 100-25 Mcg Inhaler] 1 inhalation PO QAM Losartan-Hctz 50-12.5 mg [Hyzaar 50-12.5] 1 tab PO HS Simvastatin [Zocor] 80 mg PO HS Diclofenac Sodium [Voltaren] 75 mg PO DAILY Dulaglutide [Trulicity] 0.75 mg SQ MO Discharge Medication List Fluticasone/Vilanterol [Breo Ellipta 100-25 Mcg Inhaler] 1 inhalation PO QAM 03/31/22 [History] Losartan-Hctz 50-12.5 mg [Hyzaar 50-12.5] 1 tab PO HS 03/31/22 [History] Simvastatin [Zocor] 80 mg PO HS 03/31/22 [History] allopurinoL [Zyloprim] 300 mg PO HS 03/31/22 [History] Diclofenac Sodium [Voltaren] 75 mg PO DAILY 02/09/23 [History] Dulaglutide [Trulicity] 0.75 mg SQ MO 02/09/23 [History] Aspirin 81 mg PO BID 30 Days #60 tab 02/14/23 [Rx] Diclofenac Sodium [Voltaren] 75 mg PO BID #60 tab 02/14/23 [Rx] Docusate [Colace] 100 mg PO BID #30 capsule 02/14/23 [Rx] HYDROcodone/APAP 5-325MG [[place] 5-325] 1 - 2 tab PO Q6HR PRN #32 tab 02/14/23 [Rx] Omeprazole 40 mg PO DAILY #30 cap 02/14/23 [Rx] Follow up Appointment(s)/Referral(s): Adam Mohr MD [Medical Doctor] - 2 Weeks Activity/Diet/Wound Care/Special Instructions: 1. Weight-bear as tolerated on your operative extremity unless instructed otherwise. Use a walker or other assistive device to ambulate. 2. Leave surgical dressing in place. If your dressing becomes saturated with blood, there is drainage, or the dressing becomes loose please contact the office. 3. It is okay to shower with your surgical dressing, but do not submerge in water (no hot tubs, bath's, swimming etc.) 4. Make sure to take her blood clot prevention medication as prescribed (aspirin, Eliquis, Xarelto, and Plavix are commonly prescribed medications for blood clot prevention) 5. While taking [place] or Percocet for pain make sure you're taking a stool softener (Colace) and drink lots of water. 6. Keep all follow-up appointments as scheduled. You will usually be seen in 1-2 weeks following surgery. 7. Please contact the office with any questions or concerns [phone] Discharge Disposition: HOME SELF-CARE
[2023-02-15] MEDS ORDERED: DEXTROSE 50% SYRINGE 50 ML IVP PRN ×2 (07:57)
[2023-02-15 08:16] VITALS: BP 109/69; PULSE 90; RESP 18; TEMP 98.9
[2023-02-15] MEDS: ASPIRIN 81 MG PO SCH (08:30)
[2023-02-15 08:44] LABS: Basophils % (A) 0 %; Eosinophils % (A) 0 %; HCT 39.3 % (39.0-53.0); HGB 12.9 gm/dL (13.0-17.5); Lymphocytes % (A) 12 %; MCH 29.7 pg (25.0-35.0); MCHC 32.9 g/dL (31.0-37.0); MCV 90.4 fL (80.0-100.0); Mean Platelet Volume 8.3; Monocytes % (A) 6 %; Neutrophils # (A) 13.1 k/uL (1.3-7.7); Neutrophils % (A) 81 %; Platelet Count 249 k/uL (150-450); RBC 4.34 m/uL (4.30-5.90); RDW 13.5 % (11.5-15.5); WBC 16.3 k/uL (3.8-10.6)
[2023-02-15] MEDS ORDERED: SYMBICORT 80-4.5 MCG INHALER INHALATION SCH (09:00)
[2023-02-15] MEDS ORDERED: INSULIN ASPART (NovoLOG) 100 UNIT/ML VIAL SQ SCH (12:30)
[2023-02-15] MEDS ORDERED: ATORVASTATIN 40 MG TAB PO SCH (21:00)
[2023-02-15] MEDS ORDERED: allopurinoL 300 MG TAB PO SCH (21:00)
[2023-02-15] MEDS ORDERED: LOSARTAN-HCTZ 50-12.5 MG 1 EACH TAB PO SCH (21:00)
[2023-02-15] MEDS ORDERED: TEMAZEPAM 15 MG CAP PO PRN (22:00)
== END 2023-02-15 09:28 | disposition home or self-care (01) ==
LOC: OR 11:18 → 4SSUR 16:14 → OR 02-15 09:28
PROVIDERS: ATTEND Orthopaedic Surgery
DX: M16.12 Unilateral primary osteoarthritis, left hip (principal); G89.18 Other acute postprocedural pain; I10 Essential (primary) hypertension; E78.5 Hyperlipidemia, unspecified; E11.9 Type 2 diabetes mellitus without complications; F10.90 Alcohol use, unspecified, uncomplicated; Z79.899 Other long term (current) drug therapy; Z82.49 Family history of ischemic heart disease and other diseases of the circulatory system; Z83.3 Family history of diabetes mellitus
CPT/HCPCS: 97161; 85025; 73502; 27130; 64450; J2250; J1100; J0690 ×2; J2405; J3490; J1885; J1170; 64447